=== PATIENT | male | born 1945 | race Hispanic/Latino ===

== ENCOUNTER 2017-07-24 07:12 | Day surgery (SDC) | payer MEDICARE ==
[2017-07-05 14:36] VITALS: BMI 25.1
[2017-07-24] MEDS ORDERED: Lactated Ringer's 1,000 ML IV ONE (07:38)
[2017-07-24] MEDS ORDERED: Carbachol 0.01% IO ONE (08:24)
[2017-07-24] MEDS ORDERED: Hyaluronate Sodium 10 mg/ml Ophth Syringe ONE (08:24)
[2017-07-24] MEDS ORDERED: Tobramycin/Dexamethasone OPHT OINT ONE (08:24)
[2017-07-24] MEDS ORDERED: Hyaluronidase Human, Recombi 150 U/ML VIAL ONE (08:25)
[2017-07-24] MEDS ORDERED: Propofol 10 mg/ml Inj (20 ML) ONE ×2 (09:03→10:22)
[2017-07-24] MEDS ORDERED: Phenylephrine 2.5% Opht Soln ONE (09:10)
[2017-07-24] MEDS ORDERED: Gentamicin 80 mg/2mL Inj. ONE (09:11)
[2017-07-24] MEDS ORDERED: MethylPREDNISolone 40 mg Vial ONE (09:11)
[2017-07-24] MEDS ORDERED: Tropicamide 1% Opht SOLUTION OS SCH ×2 (09:15→09:53)
[2017-07-24] MEDS ORDERED: Lactated Ringer's 500 ML IV ONE ×2 (09:50→10:30)
[2017-07-24 12:00] VITALS: BP 125/81; PULSE 80; RESP 18; TEMP 97; O2SAT 98
--- NOTE | 2017-07-25 12:17 | OP ---
PROCEDURE DATE: 07/24/2017 PREOPERATIVE DIAGNOSIS: Bullous keratopathy, left eye. POSTOPERATIVE DIAGNOSIS: Bullous keratopathy, left eye. OPERATIVE PROCEDURE: Descemet's stripping endothelial keratoplasty, left eye. ATTENDING: Juanpablo Cortez MD. TYPE OF ANESTHESIA: Retrobulbar block. ESTIMATED BLOOD LOSS: 0.5 mL. COMPLICATIONS: None. DESCRIPTION OF PROCEDURE: The patient was brought to the operating room and properly identified. The patient was given a retrobulbar block after proper anesthesia. The patient was then prepped and draped in the usual sterile fashion, sitting superiorly. The left cornea was noted to have bullous keratopathy. A superior peritomy was created with a 0.12 and Brenton scissor. Cautery was used for hemostasis. A 5.5 mm scleral tunnel was created just into cornea. Once this was complete, two side port incisions were made. The anterior chamber was deepened. A keratome was used to enter the anterior chamber through the scleral tunnel. The cornea was marked to 8.5 mm. A reverse Sinskey was used to score the Descemet's membrane. The Descemet's membranes were then carefully removed with the Utrata forceps. Héctor scraper was used to scrape the stroma. Three stab incisions were then made into the cornea for port incisions. Once this was completed, automated I&A was used to remove the Healon. Miostat was put in the eye to shrink the pupil. The pupil did not shrink too much due to his posterior synechiae. The incision was then extended to the full 5.5 mm width. The donor punch was then used to create 8.5 mm donor punch of the donor cornea. The donor cornea was then carefully folded into a taco configuration, held with Umer forceps and put inside the anterior chamber. The wound was then closed with three 10-0 nylon sutures, which were buried. A 30-gauge needle on an air syringe was used to pin the lenticule inside the eye and the lenticule was unfolded with air. Once this was completed, dilating drops were placed on the eye. After 10 minutes, the bubble was shrunk. The lenticule was noted to be attached. The patient was given subconjunctival antibiotics and steroids. The eye was covered by soft patch and shield and the patient was returned to the recovery room in stable condition. Juanpablo Cortez MD
== END 2017-07-24 12:58 | disposition home or self-care (01) ==
LOC: C.SDS 07:12
PROVIDERS: ATTEND Ophthalmology
DX: H18.12 Bullous keratopathy, left eye (principal); I10 Essential (primary) hypertension
CPT/HCPCS: 65756; 88305; J1580; J2001; J2175; J2704; J2920; J3010; J3470; J7120

== ENCOUNTER 2017-07-31 07:36 | Day surgery (SDC) | payer MEDICARE ==
[2017-07-05 14:35] VITALS: BMI 25.1
[2017-07-31] MEDS ORDERED: Midazolam 2 MG/2 ML VIAL ONE (08:54)
[2017-07-31] MEDS ORDERED: Propofol 10 mg/ml Inj (20 ML) ONE (08:54)
[2017-07-31] MEDS ORDERED: Lactated Ringer's 1,000 ML IV ONE (08:55)
[2017-07-31] MEDS ORDERED: Hyaluronidase Human, Recombi 150 U/ML VIAL ONE (08:57)
[2017-07-31] MEDS ORDERED: Povidone Iodine Ophthalmic 5% Soln ONE (08:57)
[2017-07-31] MEDS ORDERED: Lidocaine 2% Inj (20ml) ONE (08:57)
[2017-07-31] MEDS ORDERED: Tobramycin/Dexamethasone OPHT OINT ONE (08:57)
[2017-07-31] MEDS ORDERED: Chondroitin/Hyaluronate Opth Syringe KIT (0.55 ml-0.5 ml) IO ONE (08:57)
[2017-07-31] MEDS ORDERED: Tetracaine 0.5% Ophth (OR ONLY) ONE (08:57)
[2017-07-31] MEDS ORDERED: Carbachol 0.01% IO ONE (08:57)
[2017-07-31] MEDS ORDERED: Gentamicin 80 mg/2mL Inj. ONE (08:58)
[2017-07-31] MEDS ORDERED: MethylPREDNISolone 40 mg Vial ONE (08:58)
[2017-07-31 12:55] VITALS: BP 110/70; PULSE 63; RESP 18; TEMP 97; O2SAT 100
--- NOTE | 2017-08-06 02:16 | OP ---
PROCEDURE DATE: 07/31/2017 PREOPERATIVE DIAGNOSIS: Dislocated lenticule, left eye. POSTOPERATIVE DIAGNOSIS: Dislocated lenticule, left eye. OPERATIVE PROCEDURE: , left eye. SURGEON: Juanpablo Cortez MD TYPE OF ANESTHESIA: IV sedation. ESTIMATED BLOOD LOSS: Zero. DESCRIPTION OF PROCEDURE: The patient was brought to the operating room and properly identified. The patient was then prepped and draped in the usual sterile fashion, sitting superiorly. The speculum was placed in the left eye. The lenticule under the microscope was noted to be dislocated in the upright position. The lenticule was carefully maneuvered with BSS solution. Once this was in the right position, air was inserted into the eye to hold the lenticule to the cornea. Once this was complete, the air bubble was shrunk to the appropriate size. The lenticule was noted to be well-positioned. Topical antibiotics and steroids were given. The eye was covered with soft patch and shield. Patient returned to the recovery room in stable condition. Juanpablo Cortez MD
== END 2017-07-31 12:59 | disposition home or self-care (01) ==
LOC: C.SDS 07:36
PROVIDERS: ATTEND Ophthalmology
DX: T85.328A Displacement of other ocular prosthetic devices, implants and grafts, initial encounter (principal); V00-Y99 External causes of morbidity; Y92.9 Unspecified place or not applicable
CPT/HCPCS: 66020; J2250; J2704; J3010; J7120